=== PATIENT | male | born 1975 | race Caucasian/White ===

== ENCOUNTER 2017-06-29 15:00 | Emergency (ER) | payer SELFPAY ==
--- NOTE | 2017-06-29 15:32 | UC ---
[facility] HPI - HPI Summary HPI Summary: 41 YEAR OLD MALE PRESENTS WITH COMPLAINS OF LEFT SIDED MOLAR ABSCESS. - History of Current Complaint Stated Complaint: DENTAL Time Seen by Provider: 06/29/17 15:32 Hx Obtained From: Patient Onset/Duration: Sudden Onset Severity: Moderate Pain Scale Used: 0-10 Numeric - 7 - Allergies/Home Medications Allergies/Adverse Reactions: Allergies Allergy/AdvReac Type Severity Reaction Status Date / Time No Known Allergies Allergy Verified 06/29/17 15:33 Home Medications: Home Medications Atenolol TAB* [Tenormin TAB* 25 MG] 25 mg PO DAILY 06/29/17 [History Confirmed 06/29/17] Cholecalciferol TAB* [Vitamin D TAB*] 1,000 unit PO DAILY 06/29/17 [History Confirmed 06/29/17] Lisinopril TAB* [Prinivil TAB 10 MG*] 10 mg PO DAILY 06/29/17 [History Confirmed 06/29/17] PMH/Surg Hx/FS Hx/Imm Hx Previously Healthy: Yes - Surgical History Surgical History: Yes Surgery Procedure, Year, and Place: RT FOREARM ORIF WITH PINNING 2003 Review of Systems Constitutional: Negative Skin: Negative Eyes: Negative ENT: Dental Pain Respiratory: Negative Cardiovascular: Negative Gastrointestinal: Negative Genitourinary: Negative Motor: Negative Neurovascular: Negative Musculoskeletal: Negative Neurological: Negative Psychological: Negative All Other Systems Reviewed And Are Negative: Yes Physical Exam Triage Information Reviewed: Yes Eye Exam: Normal ENT Exam: Normal Dental: Positive: Abscess @ - LEFT DENTAL ABSCESS Neck exam: Normal Neck: Positive: 1 Respiratory Exam: Normal Cardiovascular Exam: Normal Abdominal Exam: Normal Musculoskeletal Exam: Normal Neurological Exam: Normal Psychological Exam: Normal Skin Exam: Normal Dental Complaint Course/Dx - Differential Dx/Diagnosis Provider Diagnoses: LEFT MOLAR ABSCESS Discharge - Discharge Plan Condition: Stable Disposition: HOME Prescriptions: Amoxicillin/Clavulanate TAB* [Augmentin TAB 875*] 875 mg PO BID #20 tab Chlorhexidine MOUTHWASH 0.12%* [Peridex Mouth Wash 0.12%*] 15 ml MT BID #1 btl Naproxen [Naprosyn 500 mg] 500 mg PO BID PRN #30 tab PRN Reason: Pain Patient Education Materials: Dental Abscess (ED) Referrals: Non Staff,Doctor [Medical Doctor] -
[2017-06-29 15:33] VITALS: BP 130/84
== END 2017-06-29 16:01 | disposition home or self-care (01) ==
LOC: UCCORT 15:00
DX: K04.7 Periapical abscess without sinus (principal)
CPT/HCPCS: 99212; G0463

== ENCOUNTER → 2018-08-25 05:33 | Day surgery (SDC) | payer OTHER ==
[~2018-08-25 05:33] MED LIST: Atracurium* 10 MG/ML 10 ML VIAL ONE; Buffered Lidocaine 0.9% SYRIN* 5 ML/SYR SYRINGE INTRADERM ONE; Buffered Lidocaine 0.9% SYRIN* 5 ML/SYR SYRINGE ONE; Bupivacaine 0.5% W/EPI SDV* 30 ML VIAL ONE; Dexamethasone TAB* 4 MG ONE; Dexamethasone TAB* 4 MG PO ONE; DiMENhydriNATE IV* 50 MG/ML VIAL IV PUSH PRN; EPHEDrine (Pressors)* 50 MG/ML VIAL ONE; Famotidine IV* 10 MG/ML 2 ML (20 mg) IV ONE; Famotidine IV* 10 MG/ML 2 ML (20 mg) ONE; Glycopyrrolate IV* 0.2 MG/ML 1 ML VIAL ONE; HYDROmorphone INJ1* 1 MG/ML SYRINGE IV PRN; KETAMINE HCL* 50 MG/ML 10 ML VIAL ONE; Ketorolac INJ* 30 MG/ML 1 ML VIAL ONE; Lidocaine 2% PF * 5 ML VIAL ONE; Midazolam* 1 MG/ML 5 ML VIAL (5 MG) ONE; Morphine VIAL* 10 MG/ML 1 ML VIAL ONE; Naloxone* 0.4 MG/ML 1 ML VIAL IV PRN; Ondansetron ODT TAB* 4 MG ONE; Ondansetron TAB* 4 MG PO ONE; PROCHLORPERAZINE INJ 5 MG/ML 2 ML VIAL IV PRN; PROCHLORPERAZINE INJ 5 MG/ML 2 ML VIAL ONE; Phenylephrine INJ* 10 MG/ML 1 ML VIAL (10 MG) ONE; Phenylephrine IV* 40 MCG/ML 10 ML SYRINGE ONE; Propofol* 10 MG/ML 20 ML BTL IV PUSH ONE; Succinylcholine* 20 MG/ML 10 ML VIAL ONE; ceFAZolin 1 GM VIAL(*) ONE; ceFAZolin 2 GM PREMIX in ORs 2 GM/50 ML BAG IVPB ONE; fentaNYL* 50 MCG/ML 2 ML VIAL (100 MCG VIAL) IV PRN; fentaNYL* 50 MCG/ML 5 ML VIAL (250 MCG VIAL) ONE; oxyCODONE/Acetamin 5/325 MG* TAB ONE; oxyCODONE/Acetamin 5/325 MG* TAB PO PRN
[2018-08-25 12:08] VITALS: BP 146/98
--- NOTE | 2018-08-30 01:07 | OP ---
DATE OF OPERATION: 08/25/18 - SDS DATE OF : 79 SURGEON: Charly Mercado MD ADMISSION DISCHARGE RN: MIKE Garcia. A physician assistant community director was required for the length of the procedure for assistance with patient positioning, retraction, and closure. ANESTHESIOLOGIST: Dr. Rogers Wheat. ANESTHESIA: General anesthesia, approximately 5 cc of local anesthesia placed into the subcutaneous tissue about the skin incision. PRE-OP DIAGNOSIS: Left distal biceps tendon rupture. POST-OP DIAGNOSIS: Left distal biceps tendon rupture. OPERATIVE PROCEDURE: Open left distal biceps tendon repair. ANTIBIOTICS: 3 g Ancef IV. IV FLUIDS: 1500 cc crystalloid. TOURNIQUET TIME: 73 minutes at 250 mmHg. CMNC-SL-LRIC TIME: 70 minutes. RADIATION EXPOSURE: Mini C-arm utilized. Time and exposure not currently available in PACS. SPECIMEN: None. IMPLANTS: Arthrex distal biceps repair set with metal button and biocomposite screw, 7 x 12 mm and FiberLoop suture. COMPLICATIONS: None. ESTIMATED BLOOD LOSS: Minimal. 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 The patient was seen elsewhere, diagnosed with a distal biceps tendon rupture and referred to my clinic. I confirmed the diagnosis on history and physical exam and MRI imaging and discussed operative and nonoperative management. The patient opted for operative management. Discussed risks and potential complications of surgery. DESCRIPTION OF PROCEDURE: In preoperative holding, the patient signed a written consent. The operative extremity was marked in preoperative holding. The patient was taken back to the operating room, placed supine on the operating room table, sedated and intubated. A hand table was applied to the operating room table and the operating room table was turned 90 degrees. Due to the patient's relatively short upper arm and his 8 cm of retraction preoperatively as well as his BMI of 42, I decided to use a sterile tourniquet. The patient's left upper extremity was prepped and draped. Sterile tourniquet was applied. A surgical timeout was performed. Esmarch was applied and the tourniquet was elevated to 250 mmHg. I made a skin incision starting with the flexion crease of the elbow skin, longitudinal, moving 5 to 6 cm distal. I dissected down through subcutaneous tissues. I preserved the superficial veins. I dissected into the interval between the brachioradialis and the pronator teres. I tied off the radial recurrent vessels with Vicryl 3- 0 suture. I obtained excellent exposure of the proximal radius and was able to visualize torn fibers of the biceps tendon still attached to its insertion. Having exposed the proximal radius, I then moved proximally. At this point, I extended the incision which had first been to the level of the flexion crease to the flexion crease. I dissected through subcutaneous tissues. I was able to feel with my finger the biceps tendon and easily bring it down into the wound using an Allis. I cut off approximately 1cm at the distal end of the tendon which was of poor quality tissue. That was removed. I then placed at least 4 stitches with a FiberLoop suture. I loaded a button. I next moved distally. Only after supinating, hypersupinating the forearm did I place my blunt nosed baby Melgar for retraction about the proximal radius. I next placed a Beath pin. I obtained mini C-arm imaging and did not quite like my Beath pin location, so I changed it and moved it more proximally. I liked that position per mini C-emerson and visualization. I over reamed that with an 8 mm drill. I next irrigated well and removed any bony debris. I next placed my biceps button and flipped it. I sucked tendon down into the hole. I tied my knot. I next placed a 7 x 12 mm biocomposite screw over one of the suture strands. I tied a knot again. I did this with the elbow in some flexion. I irrigated well, no bleeding. Closure of the subcutaneous tissue with buried simple stitches using Vicryl 3-0 suture. Closure of the subcuticular layer with a running layer using Monocryl 4 -0 suture. Mastisol, Steri-Strips, 4x4's, sterile Webril. A long arm splint was placed with a posterior strut and then a sugar tong forearm strut using plaster. The tourniquet was deflated. The patient was awakened and taken to the PACU. Of note, I infused some local anesthesia before placing any dressing. DISPOSITION: The patient was given dressing instructions. He is to remain in the splint. He will follow up with me 10 to 14 days postoperatively for wound check and removal of stitches. I discussed with the patient that he has the option of following up 1 week postoperative to have the splint removed and to be able to be sooner placed into an elbow brace. I give all my distal biceps tendon, this option of coming in in the first week postoperative to switch to an elbow brace. The patient was started on indomethacin, Percocet and Keflex postoperatively. The patient will follow up with me in clinic at a minimum of 10 to 14 days postoperatively. [id number]/[facility] #: [id number] MTDD
== END | disposition home or self-care (01) ==
LOC: OR 05:33
PROVIDERS: ATTEND Orthopaedic Surgery
DX: S46.212A Strain of muscle, fascia and tendon of other parts of biceps, left arm, initial encounter (principal); X50.0XXA Overexertion from strenuous movement or load, initial encounter; Y93.89 Activity, other specified; Y92.512 Supermarket, store or market as the place of occurrence of the external cause; Y99.0 Civilian activity done for income or pay; I10 Essential (primary) hypertension
CPT/HCPCS: A9270-GY; C1713; J0330; J0690; J0780; J1885; J2250; J2270; J2704; J3010; J8540

== ENCOUNTER 2019-04-12 12:34 | Emergency (ER) | payer BC, OTHER ==
[2019-04-12 14:03] VITALS: BP 138/82
[2019-04-12] MEDS ORDERED: Tetan/Diph/Pertus SYR(Tdap)* 0.5 ML SYR(BOOSTRIX) use SYR IM ONE (14:06)
--- NOTE | 2019-04-12 14:06 | UC ---
Skin Complaint HPI - HPI Summary HPI Summary: 43 yo male presents with left lower leg wound. He tells me that 1 week ago he was at his son's little league practice and accidentally scraped his left davis on the bleachers. The area appeared to be healing, but over the last 2 days has gotten red and he has noticed some clear/yellowish thin drainage. He has not been covering the area or applying any creams. He is not diabetic. Denies fever , chills, or hx of MRSA. Last tetanus was around 10 years ago - History of Current Complaint Chief Complaint: UCSkin Time Seen by Provider: 04/12/19 14:06 Stated Complaint: SKIN COMPLAINT Hx Obtained From: Patient Onset/Duration: Gradual Onset Onset Severity: Mild Current Severity: Mild Pain Intensity: 2 Pain Scale Used: 0-10 Numeric - Allergy/Home Medications Allergies/Adverse Reactions: Allergies Allergy/AdvReac Type Severity Reaction Status Date / Time No Known Allergies Allergy Verified 04/12/19 14:04 PMH/Surg Hx/FS Hx/Imm Hx Cardiovascular History: Hypertension - Surgical History Surgical History: Yes Surgery Procedure, Year, and Place: RT FOREARM ORIF WITH PINNING 2004. BICEP RIGHT SHOULDER 2016 [place]. 08-25-18 distal bicep left lower arm - Family History Known Family History: Positive: Hypertension - Social History Occupation: Employed Full-time Lives: With Family Alcohol Use: None Substance Use Type: None Smoking Status (MU): Former Smoker Have You Smoked in the Last Year: No When Did the Patient Quit Smoking/Using Tobacco: 7 YEARS AGO - Immunization History Most Recent Influenza Vaccination: no Review of Systems All Other Systems Reviewed And Are Negative: Yes Constitutional: Positive: Negative Skin: Positive: Other - left leg wound Respiratory: Positive: Negative Cardiovascular: Positive: Negative Neurovascular: Positive: Negative Neurological: Positive: Negative Psychological: Positive: Negative Physical Exam - Summary Physical Exam Summary: GENERAL: NAD. WDWN. No pain distress. SKIN: LEFT LOWER LEG: Mid davis with horizontal 4.0cm linear abrasion partial thickness with faint surrounding erythema and slight thin yellowish fluid. Mild edema and TTP. Lower 1/3 of davis with 3.0cm horizontal linear abrasion mixed partial thickness and superficial. Scant yellowish fluid on granulation issue. NTTP. No erythema or edema. NECK: Supple. Nontender. No lymphadenopathy. CHEST: No accessory muscle use. Breathing comfortably and in no distress. CV: Pulses intact. Cap refill <2seconds NEURO: Alert. PSYCH: Age appropriate behavior. Triage Information Reviewed: Yes Vital Signs: Initial Vital Signs Temp 98.6 F 04/12/19 13:57 Pulse 62 04/12/19 13:57 Resp 16 04/12/19 13:57 BP 138/82 04/12/19 13:57 Pulse Ox 98 04/12/19 13:57 Vital Signs Reviewed: Yes Course/Dx - Course Course Of Treatment: The wounds were cleansed with NS and bandaged with telfa and anbx ointment. Will place him on keflex and bactroban for infection. Advised to change the dressings daily. tdap updated today - Diagnoses Provider Diagnosis: Abrasion of left leg Discharge - Sign-Out/Discharge Documenting (check all that apply): Patient Departure All imaging exams completed and their final reports reviewed: No Studies - Discharge Plan Condition: Stable Disposition: HOME Prescriptions: Cephalexin CAP* [Keflex CAP*] 500 mg PO TID #15 cap Mupirocin 2% OINT* [Bactroban 2 % Oint*] 1 applic TOPICAL BID #1 tube Patient Education Materials: Wound Infection (DC) Referrals: Gage Fraga MD [Primary Care Provider] - Additional Instructions: If you develop a fever, shortness of breath, chest pain, new or worsening symptoms - please call your PCP or go to the ED immediately. Please apply the antibiotic ointment daily and keep the area covered at all times until well healed. Change the dressing daily Your tetanus shot was updated today - Billing Disposition and Condition Condition: STABLE Disposition: Home
== END 2019-04-12 14:24 | disposition home or self-care (01) ==
LOC: UCCORT 12:34
DX: S80.812A Abrasion, left lower leg, initial encounter (principal); W22.8XXA Striking against or struck by other objects, initial encounter; Y92.89 Other specified places as the place of occurrence of the external cause; Z23 Encounter for immunization; Z87.891 Personal history of nicotine dependence
CPT/HCPCS: 90715; 99212; G0463